=== PATIENT | male | born 1970 | race Caucasian/White ===

== ENCOUNTER 2018-03-25 00:40 | Emergency (ER) | payer MEDICARE, MEDICAID ==
--- NOTE | 2018-03-25 01:01 | ER Document Report ---
ED General - General Chief Complaint: Psych Problem Stated Complaint: PSYCH EVAL Time Seen by Provider: 03/25/18 00:50 Notes: Patient is a pleasant 48-year-old male who presents with complaint of having history of schizophrenia and also alcoholism. He says he has been off his meds now for approximately 9 months. He says that he has been drinking daily. He says when he goes without alcohol he starts getting tremors and has withdrawal symptoms. He says he was drinking vodka but recently started drinking hard lemonade type of beverages. He says that he does have some depression. He denies any suicidal thoughts. He says that he has been having hallucinations both auditory and visually. He is hoping to speak with mental health and also to get resources for alcohol the detoxification. No other complaints at this time. TRAVEL OUTSIDE OF THE [place] IN LAST 30 DAYS: No - Related Data Allergies/Adverse Reactions: No Known Allergies Allergy (Unverified 03/25/18 01:43) Past Medical History - Social History Smoking Status: Unknown if Ever Smoked Frequency of alcohol use: Heavy Drug Abuse: None Family History: Reviewed & Not Pertinent Psychiatric Medical History: Reports: Hx Bipolar Disorder Past Surgical History: Reports: Hx Appendectomy, Hx Tonsillectomy Review of Systems - Review of Systems Notes: My Normal Review Basic REVIEW OF SYSTEMS: CONSTITUTIONAL : Denies fever, chills, or sweats. Denies recent illness. EENT: Denies eye, ear, throat, or mouth pain or symptoms. Denies nasal or sinus congestion. RESPIRATORY: Denies cough, cold, or chest congestion. Denies shortness of breath, difficulty breathing, or wheezing. GASTROINTESTINAL: Denies abdominal pain. Denies nausea, vomiting, or diarrhea. MUSCULOSKELETAL: Denies neck or back pain or joint pain or swelling. SKIN: Denies rash or skin lesions. NEUROLOGICAL: Denies altered mental status or loss of consciousness. Denies headache. Denies weakness or paralysis or loss of use of either side. Denies problems with gait or speech. Denies sensory or motor loss. PSYCHIATRIC: Hallucinations. History of schizophrenia. ALL OTHER SYSTEMS REVIEWED AND NEGATIVE. Physical Exam - Vital signs Vitals: Temp Pulse Resp BP Pulse Ox 98.8 F 87 16 110/63 96 03/25/18 00:41 03/25/18 00:41 03/25/18 00:41 03/25/18 00:41 03/25/18 00:41 - Notes Notes: General Appearance: Well nourished, alert, cooperative, no acute distress, no obvious discomfort. Well-appearing. Vitals: reviewed, See vital signs table. Head: no swelling or tenderness to the head Eyes: PERRL, EOMI, Conjuctiva clear Mouth: No decreasd moisture Lungs: No wheezing, No rales, No rhonci, No accessory muscle use, good air exchange bilaterally. Heart: Normal rate, Regular rythm, No murmur, no rub Abdomen: Normal BS, soft, No rigidity, No abdominal tenderness, No guarding, no rebound, no abdominal masses, no organomegaly Extremities: strength 5/5 in all extremities, good pulses in all extremities, no swelling or tenderness in the extremities, no edema. Skin: warm, dry, appropriate color, no rash Neuro: speech clear, oriented x 3, normal affect, responds appropriately to questions. Course - Re-evaluation Re-evalutation: 03/25/18 05:01 Patient is alcohol level is actually only 74 when he arrived. Is now several hours past this inital alcohol level and he has not had any tremor or signs of withdrawal. He is not tachycardic. If he continues to not show any signs of tremor of the time mental health arrives and he will be cleared for mental health evaluation. Dictation of this chart was performed using voice recognition software; therefore, there may be some unintended grammatical errors. - Vital Signs Vital signs: Temp Pulse Resp BP Pulse Ox 98.8 F 87 18 128/84 H 96 03/25/18 00:41 03/25/18 00:41 03/25/18 03:01 03/25/18 03:01 03/25/18 03:01 - Laboratory Result Diagrams: 03/25/18 00:47 03/25/18 00:47 Laboratory results interpreted by me: 03/25/18 03/25/18 00:47 00:47 MCH 34.1 H Chloride 109 H BUN 6 L Direct Bilirubin 0.6 H Total Protein 6.2 L Salicylates < 1.0 L Acetaminophen < 10 L - EKG Interpretation by Me Additional EKG results interpreted by me: 03/25/18 01:00 EKG is reviewed and interpreted by me. EKG shows sinus rhythm with a rate of [address] segment elevation or depression. No ischemic T wave inversions. CO interval, QRS duration, QTc intervals are within normal range. Old EKG for comparison is from October 22, 2014.
[2018-03-25] MEDS ORDERED: NORMAL SALINE 1000 ML 1,000 ML IV ONE (01:22)
[2018-03-25] MEDS ORDERED: MULTIVITAMIN TABLET PO ONE (01:23)
[2018-03-25] MEDS ORDERED: THIAMINE HCL 100 MG, FOLIC ACID 1 MG in NORMAL SALINE 250 ML IV ONE (01:23)
[2018-03-25 01:31] LABS: ABSOLUTE EOSINOPHILS # (AUTO) 0.2 10^3/uL (0.0-0.6); ABSOLUTE LYMPHOCYTES (AUTO) 1.5 10^3/uL (0.5-4.7); ABSOLUTE MONOCYTES (AUTO) 0.4 10^3/uL (0.1-1.4); ABSOLUTE NEUT (AUTO) 7.2 10^3/uL (1.7-8.2); BASOPHILS % (AUTO) 0.1 % (0-2); EOSINOPHILS % (AUTO) 1.9 % (0-6); HEMATOCRIT 42.7 % (37.9-51.0); HEMOGLOBIN 15.3 g/dL (13.5-17.0); LYMPHOCYTES % (AUTO) 15.9 % (13-45); MEAN CORPUSCULAR HEMOGLOBIN 34.1 pg (27.0-33.4); MEAN CORPUSCULAR HGB CONC 35.7 g/dL (32.0-36.0); MEAN CORPUSCULAR VOLUME 95 fl (80-97); MONOCYTES % (AUTO) 4.3 % (3-13); PLATELET COUNT 233 10^3/uL (150-450); RED BLOOD COUNT 4.48 10^6/uL (4.35-5.55); RED CELL DISTRIBUTION WIDTH 13.1 % (11.5-14.0); SEGMENTED NEUTROPHILS % (AUTO) 77.8 % (42-78); TOTAL CELLS COUNTED % (AUTO) 100 %; WHITE BLOOD COUNT 9.3 10^3/uL (4.0-10.5)
[2018-03-25] MEDS ORDERED: FOLIC ACID INJ 5 MG/1 ML 10 ML VIAL ONE (01:36)
[2018-03-25] MEDS ORDERED: THIAMINE HCL INJ 200 MG/2 ML VIAL ONE (01:36)
[2018-03-25 01:37] LABS: ALANINE AMINOTRANSFERASE 33 U/L (21-72); ALBUMIN 3.9 g/dL (3.5-5.0); ALCOHOL 74 mg/dL (NONE DETECTED); ALKALINE PHOSPHATASE 75 U/L (38-126); ANION GAP 7 (5-19); ASPARTATE AMINO TRANSFERASE 30 U/L (17-59); BILIRUBIN,DIRECT 0.6 mg/dL (0.0-0.4); BILIRUBIN,TOTAL 0.6 mg/dL (0.2-1.3); BLOOD UREA NITROGEN 6 mg/dL (7-20); CALCIUM 9.1 mg/dL (8.4-10.2); CARBON DIOXIDE 26 mmol/L (22-30); CHLORIDE 109 mmol/L (98-107); GLUCOSE 97 mg/dL (75-110); POTASSIUM 3.7 mmol/L (3.6-5.0); SODIUM 141.6 mmol/L (137-145); TOTAL PROTEIN 6.2 g/dL (6.3-8.2)
[2018-03-25 01:38] LABS: ACETAMINOPHEN < 10 ug/mL (10-30); SALICYLATE < 1.0 mg/dL (2.0-20.0)
--- NOTE | 2018-03-25 08:15 | EKG REPORT ---
SEVERITY:- ABNORMAL ECG - SINUS RHYTHM LEFT POSTERIOR FASCICULAR BLOCK : Confirmed by: Amena Burger MD 25-Mar-2018 08:14:33
[2018-03-25] MEDS ORDERED: LORAZEPAM 1 MG TABLET PO ONE (10:37)
[2018-03-25] MEDS ORDERED: NICOTINE 21 MG/24 HR PATCH.TD24 TD ONE (10:46)
--- NOTE | 2018-03-25 11:37 | ER Document Report ---
Doctor's Note Notes: 03/25/18 11:33 Medical rounds: Patient states he is having " shakes" but otherwise feels fines. Confirms history of alcoholism and seeking inpatient help. Reports having a history of withdrawals but not withdrawal seizures. Patient states he smokes approximately 2 PPD and would like to receive a nicotine patch. Discussed plan with patient who is agreeable. GENERAL: Alert, interacts well. No acute distress. HEAD: Normocephalic, atraumatic. EYES: Pupils equal, round, and reactive to light. Extraocular movements intact. NECK: Full range of motion. Supple. Trachea midline. LUNGS: Clear to auscultation bilaterally, no wheezes, rales, or rhonchi. No respiratory distress. HEART: Regular rate and rhythm. No murmurs, gallops, or rubs. EXTREMITIES: Moves all 4 extremities spontaneously. Mild tremor. Laceration to the radial aspect of right 2nd digit DIP, mild erythema, no fluctuance, no drainage. NEUROLOGICAL: Alert and oriented x3. Normal speech. PSYCH: Normal affect, normal mood. SKIN: Warm, dry, normal turgor. (ZIGGY DAMON) 03/25/18 18:19 Inpatient placement was arranged for this patient. [employer] was sent from [facility]. Patient was discharged to voluntary inpatient alcohol rehab. Initially treated with Ativan 1 mg by mouth, this controlled his alcohol withdrawal tremors well. (ENDER PETERS)
--- NOTE | 2018-03-25 11:38 | PSYCHOLOGICAL NOTE ---
Psych Note - Psych Note Psych Note: Reason for Consult:Detox Patient is a pleasant 48-year-old male who presents with complaint of having history of mental health and also alcoholism. He says he has been off his meds now for approximately 9 months. Patient reports he came to [facility] via EMS to "dry out from drinking." He reports he is been drinking every day for the last month and a half. He continued to disclose that he used to drink vodka however lately it has been hard [employer] lemonade. When asked about past attempts at sobriety he states "I failed every time." He confirms he is been inpatient [facility] treatment however the last time was a couple years ago. He disclosed that he has been to [place] and "somewhere in [place]" for substance abuse treatment. Patient denies that he has thoughts of harming himself or others stating he just wants assistance with detox and getting help back on his medications. He reports he has a diagnosis of bipolar and has been off his medications for 9 months. He continued disclosed that he knows he is drinking too much because lately he has been having issues with feeling like something was grabbing him or hearing things that are not there; "I think I am drinking too much... I be riding in the truck and something feels like it is grabbing me sometimes it happens at home to oral be sitting there and hears something outside and when I go out there there is nothing there." Patient confirms that he is drinking during these episodes however denies this is ever happened to him before and states that is "scary." Behavior health team contacted the [facility] and allowed patient to conduct intake interview. Patient did not qualify because patient has insurance. Behavior health team contacted [facility]. They confirm they take the patient's insurance and have a bed available. They request patient's information faxed to them. Patient has been accepted to a [facility] and they will be sending a minibus driver to [facility] the patient for voluntary treatment for substance abuse/detox. Patient is alert and orientated to person, place, time and circumstance. Mood is euthymic with congruent affect. Patient denies suicidal and homicidal ideation. Delusions are absent behaviors congruent with an intact reality based presentation i.e. organized and linear thought process. Patient is noted to disclose possible tactile and auditory hallucinations while under the influence and reports this is a new occurrence. Patient is not demonstrating any behaviors indicating he is currently responding to internal stimuli. Patient has good eye contact. Conversational speech is within right normal rate , tone and prosody. Intellectual abilities appear to be within the average range. Attention and concentration are fair. Insight, judgment, impulse control are fair. No medication recommendations at this time 303.90 (F10.20) alcohol use disorder; severe 296.80 (F31.9) unspecified bipolar and related disorder per history provided by patient Impression\\plan: Patient is cleared from acute psychiatric services. Patient does not meet IVC criteria per MD GS 122C. Patient denies thoughts of wanting to harm himself or others and is requesting assistance with detox and getting back on his medications. Most appropriate treatment course would be stabilizing patient through substance abuse treatment (ie detox) and then addressing mental health. [facility] report they have a bed available. Patient has been accepted to a [facility] and they will be sending a minibus driver to [facility] the patient for voluntary treatment for substance abuse/detox. Dr. Manzano was consulted on the care and management this patient; attending physician is agreement with recommendations and disposition.
[2018-03-25 11:45] VITALS: BP 148/96
== END 2018-03-25 15:09 | disposition other institution (70) ==
LOC: ER 00:40
DX: F10.20 Alcohol dependence, uncomplicated (principal); Y90.3 Blood alcohol level of 60-79 mg/100 ml; F32.9 Major depressive disorder, single episode, unspecified; R44.1 Visual hallucinations; F17.200 Nicotine dependence, unspecified, uncomplicated
CPT/HCPCS: 93005; 99285; 96365; 36415; 80307 ×3; 85025; 80053; 93010; J3490; A9270 ×2; J3411; J7030; J7050